=== PATIENT | male | born 1965 | race Asian ===

== ENCOUNTER 2017-11-28 08:14 | Emergency (ER) | payer MEDICAID ==
[~2017-11-28] VITALS: Ht 167.6 cm; Wt 62.6 kg
[2017-11-28 08:14] VITALS: BP 153/91
== END 2017-11-28 08:38 | disposition home or self-care (01) ==
LOC: ER 08:16
DX: B02.9 Zoster without complications (principal)
CPT/HCPCS: 99283; A4606; Z7610